=== PATIENT | male | born 2000 | race Caucasian/White ===

== ENCOUNTER 2021-05-24 11:46 | Emergency (ER) | payer BC, SELFPAY ==
[2021-05-24 11:47] VITALS: BP 113/84; PULSE 76; RESP 16; TEMP 36.4; O2SAT 98; BMI 21.1
--- NOTE | 2021-05-24 12:21 | EDS_ITS ---
HPI History of Present Illness Chief Complaint: Ear Problem Narrative Narrative: Patient presents with swelling of his right external ear. He states that he was practicing [employer], and he sustained an injury to his right ear. His friend took an insulin needle to the right auricle because of the swelling, and removed a lot of blood. This was approximately 9 to 10 days ago. He states over the last 2 days he noticed swelling at the top of his ear again. 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 He denies other injury. He does not take blood thinners. He presents for evaluation of the swelling at the top of his right ear. [facility] Home Medications NK 05/24/21 [History Last Taken Unknown] Allergy/AdvReac Type Severity Reaction Status Date / Time No Known Allergies Allergy Verified 05/24/21 11:48 ROS ROS ED ROS Narrative Constitutional: No fever, no chills. HEENT: No sore throat. No neck pain. No loss of vision. No rhinorrhea. Top of right external ear swelling. Cardiovascular: No chest pain. No palpitations. No pedal edema. Respiratory: No cough, no shortness of breath. Abdominal: No abdominal pain. No nausea. No vomiting. Genitourinary: No dysuria. No hematuria. Musculoskeletal: No myalgias. No arthralgias. Neurologic: No headaches. No dizziness. No lightheadedness. Skin: No rash. No change in color. Psychiatric: No depression. No anxiety. EXAM Physical Exam Narrative Exam Narrative: Afebrile. Vital signs noted. HEENT: Normocephalic. Atraumatic. PERRL, EOMI. Neck soft and supple. No point tenderness or step off. Minimal swelling on top of auricle of right ear. No fluctuance. Cardiovascular: Regular rate and rhythm. No murmurs, rubs, or gallops appreciated. Respiratory: No tachypnea. Lungs clear to auscultation bilaterally. Gastrointestinal: Abdomen soft, nontender, with normoactive bowel sounds. No rebound or guarding. Neurological: Awake. Alert. Nonfocal, nonlateralizing. Skin: No rash. Normal color. No pallor. Musculoskeletal: No pedal edema. Full range of motion extremities. Const Vital Signs: 05/24/21 11:47 Temperature 97.6 F L Temperature Source Temporal Pulse Rate 76 Respiratory Rate 16 Blood Pressure 113/84 H Blood Pressure Mean 93 Pulse Ox 98 Oxygen Delivery Method Room Air MDM MDM MDM Narrative Medical decision making narrative: I had a lengthy discussion with the patient. I do not see any appreciable swelling. He would like me to perform needle aspiration. He was informed of the risk of infection and scarring, along with bleeding, and acknowledges understanding and would like to proceed. I did so after alcohol prep on the area and he is a 25-gauge needle to aspirate the posterior portion of the top of his auricle. There was no blood return. At this point in time, he will take [id number] analgesics as needed, and ice the affected area for swelling. It may be a buildup of scar tissue that he feels is swollen. Regardless, I do feel he can be discharged safely home with follow-up. Return instructions were reviewed. Disposition is discharged home in stable condition. Discharge Plan Triage Chief Complaint: Ear Problem ED Provider: Filiberto Miranda Dx/Rx/DC Orders Clinical Impression: Traumatic hematoma of ear, Swelling of right external ear Instructions: ED Soft Tissue Contusion, ED Hematoma Prescriptions: No Action NK RF: 0 Referrals: Ro Samuels [Other] Disposition Disposition: Home, Self Care
== END 2021-05-24 12:39 | disposition home or self-care (01) ==
PROVIDERS: Emergency Provider Emergency Medicine; Visit Provider Emergency Medicine
DX: S00.431A Contusion of right ear, initial encounter (principal); X58.XXXA Exposure to other specified factors, initial encounter; Y93.75 Activity, martial arts; Y92.9 Unspecified place or not applicable; H93.8X1 Other specified disorders of right ear
CPT/HCPCS: 10160; 10060; 99282